=== PATIENT | female | born 1985 | race Caucasian/White ===

== ENCOUNTER 2020-02-03 09:29 | Emergency (ER) | payer MEDICAID ==
[~2020-02-03] VITALS: Ht 167.6 cm; Wt 50.6 kg
[2020-02-03 09:42] VITALS: BP 145/85
[2020-02-03] MEDS ORDERED: AMOXICILLIN 500 MG CAPSULE ONE (10:11)
[2020-02-03] MEDS ORDERED: AMOXICILLIN 500 MG CAPSULE PO SCH (10:30)
== END 2020-02-03 10:36 | disposition home or self-care (01) ==
LOC: ED 10:22
DX: K02.9 Dental caries, unspecified (principal); R51.9 Headache, unspecified; F17.200 Nicotine dependence, unspecified, uncomplicated
CPT/HCPCS: 99283